=== PATIENT | female | born 1960 | race Caucasian/White ===

== ENCOUNTER 2017-08-06 11:21 | Emergency (ER) | payer OTHER ==
[~2017-08-06] VITALS: Ht 157.5 cm; Wt 65.8 kg
[2017-08-06] MEDS ORDERED: PROTONIX40 MG (12:04)
[2017-08-06] MEDS ORDERED: AVAPRO300 MG (12:04)
== END 2017-08-06 20:06 | disposition home or self-care (01) ==
LOC: ER 11:21
DX: K52.9 Noninfective gastroenteritis and colitis, unspecified (principal)